=== PATIENT | female | born 1960 | race Caucasian/White ===

== ENCOUNTER 2018-02-24 15:48 | Emergency (ER) | payer MEDICAID ==
[~2018-02-24] VITALS: Ht 167.6 cm; Wt 68.0 kg
[2018-02-24 15:58] VITALS: BP 109/91; Ht 167.6 cm; Wt 68.0 kg
== END 2018-02-24 18:52 | disposition home or self-care (01) ==
LOC: ED 15:48
DX: S20.212A Contusion of left front wall of thorax, initial encounter (principal); Z76.0 Encounter for issue of repeat prescription; M32.9 Systemic lupus erythematosus, unspecified; M25.551 Pain in right hip; M25.552 Pain in left hip; Z88.5 Allergy status to narcotic agent; Z88.1 Allergy status to other antibiotic agents; Y04.8XXA Assault by other bodily force, initial encounter; Y93.89 Activity, other specified; Y92.89 Other specified places as the place of occurrence of the external cause; Y99.8 Other external cause status

== ENCOUNTER 2020-12-31 21:13 | Emergency (ER) | payer OTHER ==
[~2020-12-31] VITALS: Ht 167.6 cm; Wt 72.6 kg
[2020-12-31 21:22] VITALS: Ht 167.6 cm; Wt 72.6 kg
[2020-12-31 23:03] LABS: RED CELL DISTRIBUTION WIDTH 12.7 % (12.3-17.7)
[2020-12-31 23:14] LABS: CALCIUM 9.3 mg/dL (8.5-10.1); CARBON DIOXIDE 31.8 mmol/L (21-32); CREATININE SERUM 1.2 mg/dL (0.6-1.0); POTASSIUM SERUM 4.1 mmol/L (3.5-5.1)
[2020-12-31 23:18] LABS: ALBUMIN 3.6 g/dL (3.4-5.0); BILIRUBIN TOTAL 0.33 mg/dL (0.20-1.00)
[2020-12-31 23:19] LABS: TOTAL PROTEIN, SERUM 8.3 g/dL (6.4-8.2)
[2020-12-31 23:33] LABS: PLATELET COUNT 80 x10^3mcL (179-408)
[2020-12-31 23:42] VITALS: BP 142/83
== END 2020-12-31 23:42 | disposition home or self-care (01) ==
LOC: ED 21:13
PROVIDERS: Emergency Medicine
DX: R60.0 Localized edema (principal); M19.90 Unspecified osteoarthritis, unspecified site; Z85.3 Personal history of malignant neoplasm of breast; Z85.41 Personal history of malignant neoplasm of cervix uteri; Z88.1 Allergy status to other antibiotic agents; Z88.2 Allergy status to sulfonamides